=== PATIENT | female | born 1965 | race Caucasian/White ===

== ENCOUNTER → 2017-10-12 | Outpatient (CLI) | payer BC ==
[~2017-10-12] MED LIST: CLON1 PO; DULO60; LIDO5TP TOP; OXYC1TAB11; PREG75 PO; ZOLP5 PO
== END | disposition home or self-care (01) ==
LOC: LAB 16:27
PROVIDERS: Hospitalist
DX: Z12.4 Encounter for screening for malignant neoplasm of cervix (principal)
CPT/HCPCS: G0145

== ENCOUNTER → 2019-09-05 | Outpatient (CLI) | payer BC | END | disposition home or self-care (01) | LOC: LAB SHORT 17:57 → LAB 17:57 | DX: N39.0 Urinary tract infection, site not specified (principal) | CPT/HCPCS: 87077; 87086; 87186 ==

== ENCOUNTER → 2021-07-01 | Outpatient (CLI) | payer BC | LOC: LAB SHORT 16:30 → LAB 16:30 | PROVIDERS: Hospitalist | DX: Z12.4 Encounter for screening for malignant neoplasm of cervix (principal) | CPT/HCPCS: G0145 ==

== ENCOUNTER 2021-10-27 10:42 | Day surgery (SDC) | payer OTHER ==
[~2021-10-27] VITALS: Ht 170.2 cm; Wt 54.8 kg
[~2021-10-27 10:42] MED LIST changes: +ALPR1 PO; +ALPRAZOLAM2 M1 PO; +CELE200 PO; +OXYACE7.5T PO; +Prozac20 MG PO
[2021-10-27] MEDS ORDERED: OXYC5 PO (11:00)
[2021-10-27] MEDS ORDERED: DULO60 PO (11:05)
== END 2021-10-27 13:00 | disposition home or self-care (01) ==
LOC: ORSCSDS 10:42
PROVIDERS: Internal Medicine Gastroenterology
PROC: 0DBE8ZX Excision of Large Intestine, Via Natural or Artificial Opening Endoscopic, Diagnostic (ICD-10-PCS; principal; 2021-10-27 11:45)
DX: K51.90 Ulcerative colitis, unspecified, without complications (principal); K63.89 Other specified diseases of intestine; Z80.0 Family history of malignant neoplasm of digestive organs; K64.8 Other hemorrhoids
CPT/HCPCS: 88305; J2250; J2704; J7120

== ENCOUNTER 2023-09-14 17:41 | Emergency (ER) | payer OTHER ==
[~2023-09-14] VITALS: Ht 175.3 cm; Wt 72.6 kg
[~2023-09-14 17:41] MED LIST changes: +DULO60 PO; +OXYC5 PO
[2023-09-14 18:56] VITALS: BP 126/71
== END 2023-09-14 21:16 | disposition home or self-care (01) ==
LOC: ER 17:41
DX: Z76.0 Encounter for issue of repeat prescription (principal); Z88.2 Allergy status to sulfonamides; Z88.5 Allergy status to narcotic agent; Z79.899 Other long term (current) drug therapy
CPT/HCPCS: 99281; A9270